=== PATIENT | female | born 1960 | race Native Hawaiian/Other Pacific Islander ===

== ENCOUNTER 2019-04-19 11:21 | Outpatient (CLI) | payer BC | END 2019-04-19 23:03 | disposition home or self-care (01) | LOC: LABW 11:21 | DX: R19.7 Diarrhea, unspecified (principal); Z85.038 Personal history of other malignant neoplasm of large intestine | CPT/HCPCS: 36415; 82705; 83516; 83630; 84436; 84443; 85651; 87015; 87045; 87324; 87328; 87329; 87338; 87449; 87899 ==

== ENCOUNTER 2019-08-23 08:31 | Outpatient (CLI) | payer BC ==
[2019-08-23 08:49] LABS: PLATELET COUNT 240 K/uL (152-353)
[2019-08-23 08:58] LABS: POTASSIUM 4.1 mmol/L (3.6-5.2)
== END 2019-08-23 19:29 | disposition home or self-care (01) ==
LOC: LABW 08:31
PROVIDERS: Nurse Practitioner Family
DX: L71.9 Rosacea, unspecified (principal); Z79.899 Other long term (current) drug therapy
CPT/HCPCS: 36415; 80053; 85027

== ENCOUNTER 2020-05-02 08:59 | Outpatient (CLI) | payer BC ==
[2020-05-02 09:35] LABS: POTASSIUM 4.3 mmol/L (3.6-5.2)
[2020-05-02 09:50] LABS: PLATELET COUNT 231 K/uL (152-353)
== END 2020-05-02 19:44 | disposition home or self-care (01) ==
LOC: LABW 08:59
PROVIDERS: Nurse Practitioner Family
DX: E78.00 Pure hypercholesterolemia, unspecified (principal); E78.5 Hyperlipidemia, unspecified; E03.9 Hypothyroidism, unspecified; Z85.038 Personal history of other malignant neoplasm of large intestine; E55.9 Vitamin D deficiency, unspecified; R53.1 Weakness; R53.83 Other fatigue
CPT/HCPCS: 36415; 80053; 80061; 82306; 84436; 84443; 85027

== ENCOUNTER 2021-04-29 14:07 | Outpatient (CLI) | payer BC ==
[2021-05-12 06:43] LABS: PLATELET COUNT 236 K/uL (152-353)
[2021-05-12 06:44] LABS: POTASSIUM 4.7 mmol/L (3.6-5.2)
== END 2021-04-29 17:00 | disposition home or self-care (01) ==
LOC: LABW 14:07
PROVIDERS: ATTEND Nurse Practitioner Family
DX: L71.9 Rosacea, unspecified (principal); Z79.899 Other long term (current) drug therapy
CPT/HCPCS: 36415; 80053; 85027

== ENCOUNTER 2021-06-05 08:34 | Outpatient (CLI) | payer BC ==
[2021-06-05 08:56] LABS: PLATELET COUNT 211 K/uL (152-353)
[2021-06-05 09:15] LABS: POTASSIUM 4.5 mmol/L (3.6-5.2)
== END 2021-06-05 23:28 | disposition home or self-care (01) ==
LOC: LABW 08:34
PROVIDERS: ATTEND Nurse Practitioner Family
DX: R06.81 Apnea, not elsewhere classified (principal); R60.9 Edema, unspecified; E78.00 Pure hypercholesterolemia, unspecified; I10 Essential (primary) hypertension; E78.5 Hyperlipidemia, unspecified; E03.9 Hypothyroidism, unspecified; R11.0 Nausea; Z85.030 Personal history of malignant carcinoid tumor of large intestine; E55.9 Vitamin D deficiency, unspecified; R53.1 Weakness; R53.83 Other fatigue
CPT/HCPCS: 36415; 80053; 80061; 82607; 82670; 82746; 83001; 84144; 84402; 84403; 84436; 84443; 85027; 86316

== ENCOUNTER 2023-07-20 09:42 | Outpatient (CLI) | payer BC | END 2023-07-20 19:05 | disposition home or self-care (01) | LOC: RAD 09:42 | PROVIDERS: ATTEND Internal Medicine | DX: R05.9 Cough, unspecified (principal) ==